=== PATIENT | female | born 1995 | race African-American/Black ===

== ENCOUNTER 2016-11-24 14:25 | Emergency (ER) | payer BC, OTHER ==
--- NOTE | 2016-11-24 15:19 | ED ---
Head Injury - HPI Summary HPI Summary: 20F presents with 2208 with head injury today. She states that she was drinking a little and slipped and hit her head. She LOC for a minute. She denies any nausea or vomiting. She denies any pain currently. She denies any headache, chest pain, or abdominal pain. - History Of Current Complaint Chief Complaint: EDGeneral Stated Complaint: FALL/LOC 2208 Time Seen by Provider: 11/24/16 14:34 PMH/Surg Hx/FS Hx/Imm Hx Endocrine/Hematology History: Denies: Hx Anticoagulant Therapy Cardiovascular History: Denies: Hx Hypertension - Family History Known Family History: Negative: Cardiac Disease - Social History Alcohol Use: Weekly Substance Use Type: Reports: None Smoking Status (MU): Never Smoked Tobacco Review of Systems Negative: Fever Negative: Chest Pain Negative: Shortness Of Breath Negative: Abdominal Pain Neurological: Other - head injury Negative: Headache All Other Systems Reviewed And Are Negative: Yes Physical Exam Triage Information Reviewed: Yes Vital Signs On Initial Exam: Initial Vitals Temp Pulse Resp BP Pulse Ox 97.0 F 68 18 104/59 98 11/24/16 14:47 11/24/16 14:47 11/24/16 14:47 11/24/16 14:47 11/24/16 14:47 Vital Signs Reviewed: Yes Appearance: Positive: Well-Appearing Skin: Positive: Warm, Dry Head/Face: Positive: Normal Head/Face Inspection, Other - no step off, raccoon eyes, sullivan sign Eyes: Positive: Normal, EOMI, NEDA, Conjunctiva Clear ENT: Positive: Normal ENT inspection, Pharynx normal, TMs normal Neck: Positive: Nontender Respiratory/Lung Sounds: Positive: Clear to Auscultation, Breath Sounds Present Cardiovascular: Positive: Normal, RRR Abdomen Description: Positive: Nontender, Soft Bowel Sounds: Positive: Present Musculoskeletal: Positive: Strength/ROM Intact - of extremities Neurological: Positive: Sensory/Motor Intact, Alert, Oriented to Person Place, Time, CN Intact II-III - Carlos Coma Scale Best Eye Response: 4 - Spontaneous Best Motor Response: 6 - Obeys Commands Best Verbal Response: 5 - Oriented Diagnostics - Vital Signs Vital Signs Temp Pulse Resp BP Pulse Ox 11/24/16 14:47 97.0 F 68 18 104/59 98 - Laboratory Lab Statement: Any lab studies that have been ordered have been reviewed, and results considered in the medical decision making process. - CT head CT Interpretation: No Acute Changes CT Interpretation Completed By: Radiologist Head Injury Course/Dx Course Of Treatment: 20F presents with intoxication with head injury with LOC. denies any nausea or vomiting. normal neuro exam. CT head normal. patient able to walk steady and speaking full sentences and has ride that is sober so d/c home and will observe patient, patient understands and agrees with plan - Diagnoses Differential Diagnosis/HQI/PQRI: Cerebral Contusion, Concussion With LOC, Intracranial Bleed Provider Diagnoses: Head injury, Alcohol intoxication Discharge - Discharge Plan Condition: Stable Disposition: HOME Patient Education Materials: Head Injury (ED), Alcohol Intoxication (ED) Referrals: [facility] HOLDEN Graf [Primary Care Provider] - Additional Instructions: Take Tylenol for pain every 6 hours Follow up with Holden within 5 days Return to ED if develop severe headache, vomiting, or any new or worsening symptoms
--- NOTE | 2016-11-24 15:30 | RAD ---
Indication: Trauma with loss of consciousness. Intoxicated. Comparison: None. Technique: Noncontrast CT vertex of skull through foramen magnum. Report: The sulci, ventricles, and basal cisterns are normal for age. Correia matter white matter differentiation is preserved without evidence for edema. No intra or extra axial hemorrhage is detected. Unremarkable orbital contents. Negative for calvarial or skull base fracture. Negative for scalp hematoma. The visualized paranasal sinuses and mastoid air spaces are clear. IMPRESSION: Negative for traumatic injury or acute intracranial process. Negative unenhanced head CT.
[2016-11-24 17:10] VITALS: BP 110/70
== END 2016-11-24 17:10 | disposition home or self-care (01) ==
LOC: ED 14:25
DX: S09.90XA Unspecified injury of head, initial encounter (principal); F10.129 Alcohol abuse with intoxication, unspecified; W01.0XXA Fall on same level from slipping, tripping and stumbling without subsequent striking against object, initial encounter; Y92.9 Unspecified place or not applicable; Y90.8 Blood alcohol level of 240 mg/100 ml or more
CPT/HCPCS: 36415; 70450; 80320; 99283; G0480